=== PATIENT | female | born 1980 | race Hispanic/Latino ===

== ENCOUNTER 2017-04-22 22:39 | Emergency (ER) | payer MEDICAID | END 2017-04-23 02:19 | disposition home or self-care (01) | LOC: EDH 22:39 | DX: S80.02XA Contusion of left knee, initial encounter (principal); W18.30XA Fall on same level, unspecified, initial encounter; Y93.89 Activity, other specified; Y92.488 Other paved roadways as the place of occurrence of the external cause; Y99.8 Other external cause status | CPT/HCPCS: 73562 ==

== ENCOUNTER 2017-05-12 20:06 | Emergency (ER) | payer MEDICAID | END 2017-05-12 22:28 | disposition home or self-care (01) | LOC: EDH 20:06 | DX: S50.12XA Contusion of left forearm, initial encounter (principal); Z79.899 Other long term (current) drug therapy; X58.XXXA Exposure to other specified factors, initial encounter; Y93.89 Activity, other specified; Y92.89 Other specified places as the place of occurrence of the external cause; Y99.8 Other external cause status | CPT/HCPCS: 99281 ==

== ENCOUNTER 2017-05-20 10:32 | Emergency (ER) | payer BC, MEDICAID ==
[2017-05-20] MEDS ORDERED: IPRATROPIUM/ALBUTEROL SULFATE 3 ML SOLUTION IH ONE (10:53)
[2017-05-20] MEDS ORDERED: LIDOCAINE HCL-MPF 1% 2ML VIAL ONE (11:28)
[2017-05-20] MEDS ORDERED: CEFTRIAXONE SODIUM 1 GM ONE (11:28)
== END 2017-05-20 12:02 | disposition home or self-care (01) ==
LOC: EDH 10:32
DX: J20.9 Acute bronchitis, unspecified (principal); J30.9 Allergic rhinitis, unspecified; Z98.890 Other specified postprocedural states; Z79.899 Other long term (current) drug therapy
CPT/HCPCS: 71046; 94640; 96372; 99284; J0696; J3490

== ENCOUNTER 2018-01-12 06:57 | Emergency (ER) | payer BC, MEDICAID ==
[2018-01-12 07:31] LABS: BASOPHILS % (AUTO) 0.6 % (0.0-5.0); EOSINOPHILS % (AUTO) 1.4 % (0.0-8.0); HEMATOCRIT 38.7 % (36-48); LYMPHOCYTES % (AUTO) 23.3 % (21.0-51.0); MEAN CORPUSCULAR HEMOGLOBIN 28.1 pg (27.0-33.0); MEAN CORPUSCULAR HGB CONC 32.5 g/dL (32.0-36.0); MEAN CORPUSCULAR VOLUME 86.4 fL (79-99); MONOCYTES % (AUTO) 6.4 % (3.0-13.0); NEUTROPHILS % (AUTO) 68.3 % (40.0-77.0); PLATELET COUNT (AUTO) 212 K/uL (130-400); RED BLOOD CELL COUNT(AUTO) 4.48 MIL/uL (4.00-5.50); RED CELL DISTRIBUTION WIDTH 17.9 % (11.0-15.5); WHITE BLOOD COUNT (AUTO) 8.9 K/uL (4.8-10.8)
[2018-01-12 07:40] LABS: CREATININE 0.6 mg/dL (0.5-1.5); POTASSIUM 3.7 mmol/L (3.5-5.1)
[2018-01-12 07:46] LABS: ALBUMIN 3.3 g/dL (3.5-5.0); BILIRUBIN,DIRECT 0.1 mg/dL (0.0-0.3); BILIRUBIN,TOTAL 0.5 mg/dL (0.2-1.0); TOTAL PROTEIN, SERUM 7.8 g/dL (6.0-8.3)
[2018-01-12 09:39] LABS: APPEARANCE,URINE CLEAR (CLEAR); BILIRUBIN,URINE NEGATIVE (NEGATIVE); COLOR,URINE YELLOW (YELLOW); GLUCOSE, URINE (UA) NEGATIVE (NEGATIVE); KETONES,URINE 15 mg/dL (NEGATIVE); LEUKOCYTE ESTERASE ,URINE NEGATIVE (NEGATIVE); NITRATE,URINE NEGATIVE (NEGATIVE); OCCULT BLOOD,URINE LARGE (NEGATIVE); PROTEIN,URINE NEGATIVE (NEGATIVE); UROBILINOGEN,URINE 0.2 mg/dL (0.2-1.0)
[2018-01-12 09:47] LABS: AMPHET/METH SCREEN,URINE NEGATIVE (NEGATIVE); BARBITURATE SCREEN, URINE NEGATIVE (NEGATIVE); BENZODIAZEPINES SCREEN,URINE NEGATIVE (NEGATIVE); CANNABINOID SCREEN,URINE NEGATIVE (NEGATIVE); COCAINE SCREEN,URINE NEGATIVE (NEGATIVE); OPIATE SCREEN,URINE NEGATIVE (NEGATIVE); PHENCYCLIDINE SCREEN,URINE NEGATIVE (NEGATIVE)
[2018-01-12 10:12] LABS: BACTERIA,URINE Rare /HPF (None Seen); RBC,URINE 0-1 /HPF (0-1); SQUAMOUS EPITHELIAL CELL,UR Rare /HPF (0-2); WBC,URINE 0-1 /HPF (0-1)
== END 2018-01-12 11:03 | disposition home or self-care (01) ==
LOC: EDH 06:57
DX: O20.0 Threatened abortion (principal); Z3A.12 12 weeks gestation of pregnancy
CPT/HCPCS: 36415; 76801; 80048; 80076; 80305; 81001; 84702; 85025; 86850; 86900; 86901

== ENCOUNTER 2018-07-01 11:58 | Emergency (ER) | payer BC, MEDICAID ==
[2018-07-01] MEDS ORDERED: ACETAMINOPHEN 325 MG TAB ONE (12:37)
[2018-07-01 13:02] LABS: RAPID GROUP A STREP NEGATIVE (NEGATIVE)
== END 2018-07-01 13:58 | disposition home or self-care (01) ==
LOC: EDH 11:58
DX: O99.513 Diseases of the respiratory system complicating pregnancy, third trimester (principal); J06.9 Acute upper respiratory infection, unspecified; Z90.49 Acquired absence of other specified parts of digestive tract; Z98.890 Other specified postprocedural states; Z3A.36 36 weeks gestation of pregnancy
CPT/HCPCS: 87804; 87880

== ENCOUNTER 2019-01-13 20:19 | Emergency (ER) | payer MEDICAID ==
[2019-01-13 21:08] LABS: RAPID GROUP A STREP NEGATIVE (NEGATIVE)
== END 2019-01-13 21:36 | disposition home or self-care (01) ==
LOC: EDH 20:19
DX: J06.9 Acute upper respiratory infection, unspecified (principal); Z98.890 Other specified postprocedural states
CPT/HCPCS: 87804; 87880

== ENCOUNTER 2019-02-22 20:29 | Emergency (ER) | payer MEDICAID ==
[2019-02-22] MEDS ORDERED: DiphenhydrAMINE HCL 50 MG/ML VIAL ONE (21:15)
[2019-02-22] MEDS ORDERED: METHYLPREDNISOLONE SOD SUCC 125MG/2ML VIAL ONE (21:15)
== END 2019-02-22 21:57 | disposition home or self-care (01) ==
LOC: EDH 20:29
DX: K13.0 Diseases of lips (principal); Z88.8 Allergy status to other drugs, medicaments and biological substances; Z98.890 Other specified postprocedural states
CPT/HCPCS: 96372 ×2; 99284; J1200; J2930

== ENCOUNTER 2019-02-24 17:10 | Emergency (ER) | payer MEDICAID ==
[2019-02-24] MEDS ORDERED: ACETAMINOPHEN EXTRA STRENGTH 500 MG TABLET ONE (17:29)
[2019-02-24 18:42] LABS: RAPID GROUP A STREP NEGATIVE (NEGATIVE)
== END 2019-02-24 18:35 | disposition home or self-care (01) ==
LOC: EDH 17:10
DX: J09.X2 Influenza due to identified novel influenza A virus with other respiratory manifestations (principal); Z88.0 Allergy status to penicillin
CPT/HCPCS: 81025; 87804; 87880

== ENCOUNTER 2019-04-22 21:13 | Emergency (ER) | payer MEDICAID ==
[2019-04-22] MEDS ORDERED: DIPHENHYDRAMINE HCL 25 MG CAPSULE ONE (22:06)
[2019-04-22] MEDS ORDERED: PREDNISONE 20 MG TABLET ONE (22:06)
== END 2019-04-22 23:38 | disposition home or self-care (01) ==
LOC: EDH 21:13
DX: T78.49XA Other allergy, initial encounter (principal); Z88.0 Allergy status to penicillin; Z98.890 Other specified postprocedural states; X58.XXXA Exposure to other specified factors, initial encounter
CPT/HCPCS: 82948; 99283; Q0163

== ENCOUNTER 2019-07-12 13:26 | Emergency (ER) | payer MEDICAID ==
[2019-07-12] MEDS ORDERED: ACETAMINOPHEN 325 MG TAB ONE (14:02)
[2019-07-12] MEDS ORDERED: TETANUS/DIPHTHERIA TOXOID [ADULT] 0.5 ML VIAL IM ONE (14:03)
== END 2019-07-12 15:14 | disposition home or self-care (01) ==
LOC: EDH 13:26
DX: S91.331A Puncture wound without foreign body, right foot, initial encounter (principal); Z88.0 Allergy status to penicillin; Z98.890 Other specified postprocedural states; W45.0XXA Nail entering through skin, initial encounter; Y93.89 Activity, other specified; Y92.098 Other place in other non-institutional residence as the place of occurrence of the external cause; Y99.8 Other external cause status
CPT/HCPCS: 73630; 90471; 90714

== ENCOUNTER 2019-08-05 21:51 | Emergency (ER) | payer MEDICAID ==
[2019-08-05] MEDS ORDERED: ACETAMINOPHEN EXTRA STRENGTH 500 MG TABLET ONE (22:24)
[2019-08-05] MEDS ORDERED: POTASSIUM BICARB/CIT AC 25 MEQ TABLET.EFF ONE (23:32)
[2019-08-06] MEDS ORDERED: AZITHROMYCIN 250 MG TABLET PO ONE (01:22)
== END 2019-08-06 01:49 | disposition home or self-care (01) ==
LOC: EDH 21:51
DX: U07.1 COVID-19 (principal); J12.89 Other viral pneumonia; E87.6 Hypokalemia; Z88.0 Allergy status to penicillin; Z98.890 Other specified postprocedural states
CPT/HCPCS: 36415 ×2; 71045; 80053; 81001; 81025; 82550; 83605; 83874; 84145; 84484; 85025; 85610; 85730; 87040 ×2; 87088; 87804 ×2; 87880; 93005; 99285; U0003

== ENCOUNTER 2020-08-14 16:42 | Emergency (ER) | payer MEDICAID ==
[~2020-08-14] VITALS: Ht 175.3 cm; Wt 119.7 kg
[2020-08-14] MEDS ORDERED: KETOROLAC 30MG VIAL (30MG/ML) IM ONE (17:30)
[2020-08-14] MEDS ORDERED: MUPI22O TP (17:52)
== END 2020-08-14 18:23 | disposition home or self-care (01) ==
LOC: EDH 16:42
DX: S80.862A Insect bite (nonvenomous), left lower leg, initial encounter (principal); L29.9 Pruritus, unspecified; W57.XXXA Bitten or stung by nonvenomous insect and other nonvenomous arthropods, initial encounter; Y93.89 Activity, other specified; Y92.89 Other specified places as the place of occurrence of the external cause; Y99.8 Other external cause status
CPT/HCPCS: 96372; 99283; J1885

== ENCOUNTER 2020-10-22 18:47 | Emergency (ER) | payer MEDICAID ==
[~2020-10-22] VITALS: Ht 175.3 cm; Wt 127.0 kg
[~2020-10-22 18:47] MED LIST: MUPI22O TP
[2020-10-22 18:59] VITALS: BP 129/76
[2020-10-22] MEDS ORDERED: TETANUS/DIPHTHERIA TOXOID [ADULT] 0.5 ML VIAL IM ONE (19:00)
[2020-10-22] MEDS ORDERED: CEPHALEXIN 500 MG CAPSULE PO ONE (19:00)
[2020-10-22] MEDS ORDERED: HYDROCODONE/ACETAMINOPHEN 10/325 MG TAB PO ONE (19:00)
[2020-10-22] MEDS ORDERED: CEPH500B PO (19:43)
[2020-10-22] MEDS ORDERED: IBUP-1552 PO (19:43)
== END 2020-10-22 20:27 | disposition home or self-care (01) ==
LOC: EDH 18:47
DX: S90.122A Contusion of left lesser toe(s) without damage to nail, initial encounter (principal); S90.415A Abrasion, left lesser toe(s), initial encounter; Z68.41 Body mass index [BMI] 40.0-44.9, adult; E66.9 Obesity, unspecified; X58.XXXA Exposure to other specified factors, initial encounter; Y93.89 Activity, other specified; Y92.000 Kitchen of unspecified non-institutional (private) residence as the place of occurrence of the external cause; Y99.8 Other external cause status
CPT/HCPCS: 73660; 90471; 90714

== ENCOUNTER 2021-07-31 20:09 | Emergency (ER) | payer MEDICAID ==
[~2021-07-31] VITALS: Ht 175.3 cm; Wt 117.9 kg
[~2021-07-31 20:09] MED LIST changes: +CEPH500B PO; +IBUP-1552 PO
[2021-07-31] MEDS ORDERED: ACETAMINOPHEN 500 MG TABLET PO ONE (21:00)
[2021-07-31] MEDS ORDERED: AZEL23SP2 NS (21:13)
[2021-07-31 21:29] VITALS: BP 121/71
== END 2021-07-31 21:36 | disposition home or self-care (01) ==
LOC: EDH 20:09
DX: J06.9 Acute upper respiratory infection, unspecified (principal); Z20.822 Contact with and (suspected) exposure to COVID-19; E66.9 Obesity, unspecified; Z68.38 Body mass index [BMI] 38.0-38.9, adult; Z79.1 Long term (current) use of non-steroidal anti-inflammatories (NSAID)
CPT/HCPCS: 87635; 87804 ×2; 99283; C9803

== ENCOUNTER 2022-01-26 08:00 | Emergency (ER) | payer MEDICAID ==
[~2022-01-26] VITALS: Ht 175.3 cm; Wt 119.7 kg
[~2022-01-26 08:00] MED LIST changes: +AZEL23SP2 NS
[2022-01-26] MEDS ORDERED: NAPROXEN 500 MG TABLET PO STA (08:03)
[2022-01-26] MEDS ORDERED: NAPROXEN 250 MG TAB ONE (08:20)
[2022-01-26 08:47] VITALS: BP 124/59
[2022-01-26] MEDS ORDERED: NAPR-1192 PO (09:06)
== END 2022-01-26 09:31 | disposition home or self-care (01) ==
LOC: EDH 08:00
DX: S86.911A Strain of unspecified muscle(s) and tendon(s) at lower leg level, right leg, initial encounter (principal); E11.9 Type 2 diabetes mellitus without complications; E66.9 Obesity, unspecified; Z79.899 Other long term (current) drug therapy; Z68.39 Body mass index [BMI] 39.0-39.9, adult; Z98.890 Other specified postprocedural states; W01.0XXA Fall on same level from slipping, tripping and stumbling without subsequent striking against object, initial encounter; Y93.01 Activity, walking, marching and hiking; Y92.89 Other specified places as the place of occurrence of the external cause; Y99.8 Other external cause status
CPT/HCPCS: 29505; 73562

== ENCOUNTER 2022-02-25 23:04 | Emergency (ER) | payer MEDICAID ==
[~2022-02-25] VITALS: Ht 175.3 cm; Wt 113.9 kg
[~2022-02-25 23:04] MED LIST changes: +NAPR-1192 PO
[2022-02-25 23:07] VITALS: BP 148/93
[2022-02-26 00:54] LABS: BASOPHILS % (AUTO) 0.3 % (0.0-5.0); EOSINOPHILS % (AUTO) 0.6 % (0.0-8.0); LYMPHOCYTES % (AUTO) 20.9 % (21.0-51.0); MEAN CORPUSCULAR HEMOGLOBIN 28.7 pg (27.0-33.0); MEAN CORPUSCULAR HGB CONC 33.3 g/dL (32.0-36.0); MEAN CORPUSCULAR VOLUME 86.4 fL (79-99); MONOCYTES % (AUTO) 5.1 % (3.0-13.0); NEUTROPHILS % (AUTO) 72.7 % (40.0-77.0); PLATELET COUNT (AUTO) 225 K/uL (130-400); RED BLOOD CELL COUNT(AUTO) 4.63 MIL/uL (4.00-5.50); RED CELL DISTRIBUTION WIDTH 12.9 % (11.0-15.5); WHITE BLOOD COUNT (AUTO) 12.1 K/uL (4.8-10.8)
[2022-02-26 01:07] LABS: ALBUMIN 3.6 g/dL (3.5-5.0); CREATININE 0.7 mg/dL (0.5-1.5); TOTAL PROTEIN, SERUM 7.7 g/dL (6.0-8.3)
[2022-02-26] MEDS ORDERED: IBUPROFEN 600 MG TABLET PO ONE (02:00)
[2022-02-26] MEDS ORDERED: POTASSIUM BICARB/CIT AC 25 MEQ TABLET.EFF PO ONE (02:00)
[2022-02-26] MEDS ORDERED: TRAZODONE HCL 50 MG TAB PO SCH (02:00)
[2022-02-26] MEDS ORDERED: FLUT16H NS (03:22)
[2022-02-26] MEDS ORDERED: IBUP-2070 PO (03:22)
[2022-02-26] MEDS ORDERED: CETI10TA57 PO (03:22)
== END 2022-02-26 03:32 | disposition home or self-care (01) ==
LOC: EDH 23:04
DX: G47.00 Insomnia, unspecified (principal); F43.20 Adjustment disorder, unspecified; J32.3 Chronic sphenoidal sinusitis; E11.9 Type 2 diabetes mellitus without complications; E66.9 Obesity, unspecified; Z79.899 Other long term (current) drug therapy
CPT/HCPCS: 36415; 70450; 80053; 84703; 85025

== ENCOUNTER 2022-07-14 03:20 | Emergency (ER) | payer MEDICAID ==
[~2022-07-14] VITALS: Ht 175.3 cm; Wt 125.2 kg
[~2022-07-14 03:20] MED LIST changes: +CETI10TA57 PO; +FLUT16H NS; +IBUP-2070 PO
[2022-07-14 04:07] VITALS: BP 146/89
[2022-07-14] MEDS ORDERED: KETOROLAC 60 MG VIAL (30MG/ML) IM ONE (04:30)
== END 2022-07-14 04:43 | disposition home or self-care (01) ==
LOC: EDH 03:20
DX: J02.8 Acute pharyngitis due to other specified organisms (principal); E11.9 Type 2 diabetes mellitus without complications; E66.9 Obesity, unspecified; Z68.41 Body mass index [BMI] 40.0-44.9, adult; Z20.822 Contact with and (suspected) exposure to COVID-19
CPT/HCPCS: 99283; 87635; 87880; 87804 ×2; 96372; C9803; J1885

== ENCOUNTER 2022-09-17 22:49 | Emergency (ER) | payer MEDICAID ==
[~2022-09-17] VITALS: Ht 175.3 cm; Wt 121.1 kg
[2022-09-18 01:03] VITALS: BP 137/86; PULSE 75; RESP 17; O2SAT 98
[2022-09-18] MEDS ORDERED: CEFTRIAXONE 2GM VIAL ONE (02:02)
[2022-09-18] MEDS ORDERED: KETOROLAC 30MG VIAL (30MG/ML) ONE (02:02)
[2022-09-18] MEDS ORDERED: CEPH500B PO (02:28)
[2022-09-18] MEDS ORDERED: CEFTRIAXONE 2GM VIAL IVPB ONE (02:30)
[2022-09-18] MEDS ORDERED: KETOROLAC 30MG VIAL (30MG/ML) IVP ONE (02:30)
== END 2022-09-18 02:56 | disposition home or self-care (01) ==
LOC: EDH 22:49
DX: K05.10 Chronic gingivitis, plaque induced (principal); K02.9 Dental caries, unspecified; E11.9 Type 2 diabetes mellitus without complications; Z79.899 Other long term (current) drug therapy; Z98.890 Other specified postprocedural states
CPT/HCPCS: 99284; 96365; 96375; J0696; J1885

== ENCOUNTER 2023-01-31 12:19 | Emergency (ER) | payer MEDICAID ==
[~2023-01-31] VITALS: Ht 175.3 cm; Wt 113.4 kg
[2023-01-31] MEDS ORDERED: DEXAMETHASONE SOD PHOSPHATE 4 MG/ML 1ML VIAL IM ONE (13:00)
[2023-01-31 13:34] LABS: COVID19 (SARS ANTIGEN RAPID) PRESUMPTIVE NEGATIVE (NEGATIVE); INFLUENZA TYPE A Negative For Type A (NEGATIVE); INFLUENZA TYPE B Negative For Type B (NEGATIVE)
[2023-01-31] MEDS ORDERED: LORA-868 PO (14:21)
[2023-01-31 14:28] VITALS: BP 136/69; PULSE 78; RESP 18; O2SAT 98
== END 2023-01-31 14:34 | disposition home or self-care (01) ==
LOC: EDH 12:19
DX: J06.9 Acute upper respiratory infection, unspecified (principal); E11.9 Type 2 diabetes mellitus without complications; Z20.822 Contact with and (suspected) exposure to COVID-19
CPT/HCPCS: 99283; 87426; 87804 ×2; 96372; J1100

== ENCOUNTER 2023-03-21 16:40 | Emergency (ER) | payer MEDICAID ==
[~2023-03-21] VITALS: Ht 175.3 cm; Wt 122.5 kg
[~2023-03-21 16:40] MED LIST changes: +LORA-868 PO
[2023-03-21 17:48] VITALS: BP 130/75; PULSE 67; RESP 16
[2023-03-21] MEDS ORDERED: AMOX1TAB16 PO (18:32)
[2023-03-21] MEDS ORDERED: BENZ-39 PO (18:32)
== END 2023-03-21 22:29 | disposition left against medical advice (07) ==
LOC: EDH 16:40
DX: J03.90 Acute tonsillitis, unspecified (principal); J06.9 Acute upper respiratory infection, unspecified; R05.9 Cough, unspecified; E11.9 Type 2 diabetes mellitus without complications

== ENCOUNTER 2023-11-11 23:01 | Emergency (ER) | payer MEDICAID ==
[~2023-11-11] VITALS: Ht 175.3 cm; Wt 108.9 kg
[~2023-11-11 23:01] MED LIST changes: +AMOX1TAB16 PO; +BENZ-39 PO
[2023-11-11 23:51] LABS: BASOPHILS # (AUTO) 0.05 K/uL (0.00-0.20); BASOPHILS % (AUTO) 0.4 % (0.0-5.0); EOSINOPHILS # (AUTO) 0.12 K/uL (0.00-0.70); HEMATOCRIT 39.1 % (36-48); IMMATURE GRANULOCYTE ABSOLUTE 0.07 K/uL (0-1); LYMPHOCYTES # (AUTO) 3.3 K/uL (1.0-4.8); LYMPHOCYTES % (AUTO) 28.3 % (21.0-51.0); MEAN CORPUSCULAR HEMOGLOBIN 29.5 pg (27.0-33.0); MEAN CORPUSCULAR HGB CONC 32.7 g/dL (32.0-36.0); MEAN CORPUSCULAR VOLUME 90.1 fL (79-99); MONOCYTES # (AUTO) 0.8 K/uL (0.1-1.0); MONOCYTES % (AUTO) 6.7 % (3.0-13.0); NEUTROPHILS # (AUTO) 7.3 K/uL (1.8-7.7); PLATELET COUNT (AUTO) 221 K/uL (130-400); RED BLOOD CELL COUNT(AUTO) 4.34 MIL/uL (4.00-5.50); RED CELL DISTRIBUTION WIDTH 13.1 % (11.0-15.5); WHITE BLOOD COUNT (AUTO) 11.6 K/uL (4.8-10.8)
[2023-11-12] LABS: SARS-CoV-2, RNA, NAAT NEGATIVE SARS CoV-2 (NEGATIVE)
[2023-11-12 00:03] LABS: INFLUENZA TYPE A Negative For Type A (NEGATIVE); INFLUENZA TYPE B Negative For Type B (NEGATIVE)
[2023-11-12 00:04] LABS: CREATININE 0.8 mg/dL (0.5-1.0); POTASSIUM 3.6 mmol/L (3.5-5.1)
[2023-11-12 00:12] LABS: ALBUMIN 3.4 g/dL (3.5-5.0); BILIRUBIN,TOTAL 0.5 mg/dL (0.2-1.0); TOTAL PROTEIN, SERUM 7.7 g/dL (6.0-8.3)
[2023-11-12] MEDS ORDERED: ONDA-243 PO (00:26)
[2023-11-12 00:52] VITALS: BP 132/72; PULSE 66; RESP 20; TEMP 98.6; O2SAT 100
[2023-11-12] MEDS: LACTATED RINGERS 1000ML 1,000 ML IV ONE (00:52)
[2023-11-12 01:01] LABS: APPEARANCE,URINE CLOUDY (CLEAR); BILIRUBIN,URINE NEGATIVE (NEGATIVE); COLOR,URINE LIGHT-YELLOW (YELLOW); GLUCOSE, URINE (UA) >=1000 mg/dL (NEGATIVE); KETONES,URINE 5 mg/dL (NEGATIVE); LEUKOCYTE ESTERASE ,URINE NEGATIVE Leu/uL (NEGATIVE); NITRATE,URINE NEGATIVE (NEGATIVE); OCCULT BLOOD,URINE NEGATIVE (NEGATIVE); PH,URINE 5.5 (5.0-8.0); PROTEIN,URINE 10 mg/dL (NEGATIVE); UROBILINOGEN,URINE 0.2 mg/dL (0.2-1.0)
[2023-11-12 01:02] LABS: ADD UA MICROSCOPIC YES
[2023-11-12 01:03] LABS: BACTERIA,URINE RARE /HPF (None Seen); MUCUS,URINE RARE LPF (None Seen); RBC,URINE 0-1 /HPF (0-1); SQUAMOUS EPITHELIAL CELL,UR MANY /HPF (0-2)
== END 2023-11-12 01:04 | disposition home or self-care (01) ==
LOC: EDH 23:01
DX: A08.4 Viral intestinal infection, unspecified (principal); E11.9 Type 2 diabetes mellitus without complications; E66.9 Obesity, unspecified; Z20.822 Contact with and (suspected) exposure to COVID-19
CPT/HCPCS: 36415; 80053; 81001; 82550; 85025; 87635; 87804

== ENCOUNTER 2023-12-11 19:33 | Emergency (ER) | payer MEDICAID ==
[~2023-12-11] VITALS: Ht 175.3 cm; Wt 117.9 kg
[~2023-12-11 19:33] MED LIST changes: +ONDA-243 PO
--- NOTE | 2023-12-11 19:35 | NUR ---
COVID, FLU AND STREP SWABS COLLECTED AND SENT FOR ANY FUTURE ORDERS
--- NOTE | 2023-12-11 19:50 | ERN ---
ED Note History of Present Illness Stated Complaint: COUGH, SORE THROAT Chief Complaint: Cough Time Seen by MD: 19:36 Dictation: PATIENT IS A 43-YEAR-OLD FEMALE HERE WITH COMPLAINTS OF A SORE THROAT WITH PAINFUL SWALLOWING OFF AND ON FOR TWO WEEKS. SHE DENIES ANY VOICE CHANGES, HAS HAD LOW-GRADE FEVER. SHE HAS ALSO HAD A COUGH THAT HAS BEEN NONPRODUCTIVE BUT PERSISTENT. SHE STATES SHE HAS BEEN TO HER DOCTOR TWICE WHO GAVE HER AZITHROMYCIN THE 1ST TIME, AND THEN THE 2ND TIME SOME UNKNOWN ANTIBIOTIC. SHE DENIES NAUSEA VOMITING DIARRHEA NO LOSS OF TASTE OR SMELL AT THIS TIME. SHE ALSO STATES SHE HAS A NEBULIZER HOME HOWEVER RAN OUT OF MEDICATIONS. Allergies: Coded Allergies: No Known Allergies (Unverified Allergy, Unknown, 07/01/18) No Known Drug Allergies (Unverified Allergy, Unknown, 02/22/19) Home Meds Active Scripts Ondansetron (Ondansetron Odt) 4 Mg Tab.rapdis, 4 MG PO BID for 3 Days, #6 TAB Prov:CLAUDETTE PEREZ MD 11/12/23 Benzonatate (Tessalon Perles) 100 Mg Cap, 100 MG PO TID for cough, #30 CAP 0 Refills Prov:JERRI ARGUELLES NP 03/21/23 Amoxicillin/Potassium Clav (Amox Tr-K Clv 875-125 mg Tab) 875 Mg-125 Mg Tablet, 1 EACH PO BID for 10 Days, #20 TAB 0 Refills Prov:JERRI ARGUELLES NP 03/21/23 Loratadine/Pseudoephedrine (Claritin-D 24 Hour Tablet) 10 Mg-240 Mg Tab.er.24h, 1 EACH PO DAILY, #10 TAB Prov:JERRI ARGUELLES NP 01/31/23 Cephalexin Monohydrate (Keflex) 500 Mg Cap, 500 MG PO QID for 7 Days, #28 CAP Prov:ROGE MICHEL Sr., MD 09/18/22 Ibuprofen (Ibuprofen) 600 Mg Tablet, 600 MG PO Q6H PRN for PAIN, #30 TAB 0 Refills Prov:ANALISA LANTIGUA MD 02/26/22 Fluticasone Propionate (Fluticasone Propionate) 16 Gm [place].susp, 16 GM NS BID for 15 Days, #1 INHALER 0 Refills Prov:ANALISA LANTIGUA MD 1/20/23 Cetirizine HCl (Cetirizine HCl) 10 Mg Tablet, 10 MG PO DAILY, #30 TAB 0 Refills Prov:ANALISA LANTIGUA MD 02/26/22 Naproxen (Naproxen) 375 Mg Tablet, 375 MG PO BID for 10 Days, #20 TAB Prov:CLAUDETTE PEREZ MD 01/26/22 Azelastine/Fluticasone (Azelastin-Flutic 137-50Mcg Spr) 23 Gm [place].pump, 2 SPRAY NS BID for 7 Days, #1 INHALER 0 Refills Prov:ANALISA LANTIGUA MD 07/31/21 Cephalexin Monohydrate (Keflex) 500 Mg Cap, 500 MG PO TID, #21 CAP Prov:BECKY SHEN 10/22/20 Ibuprofen (Ibu) 400 Mg Tablet, 800 MG PO TIDAC, #60 TAB Prov:BECKY SHEN 10/22/20 Mupirocin (Bactroban 2% Oint) 1 Appl/Gm Oint, 1 APPL TP TID for insect bite for 5 Days, #15 APPL Prov:BUNNY JACKSON NP 08/14/20 Past Medical History Past Medical History: Diabetes-Type II Additional Past Medical Hx: Obese Surgical History: PSYCH History: no pertinent psych hx Social History: Lives with family History: Not Applicable RN Note Reviewed/Agreed w/PFSH: Yes Review of System Dictation CONSTITUTIONAL: NEGATIVE EXCEPT FOR HPI HEAD/FACE: NEGATIVE EXCEPT FOR HPI EENT: NEGATIVE EXCEPT FOR HPI SORE THROAT WITH PAINFUL SWALLOWING RESPIRATORY: NEGATIVE EXCEPT FOR HPI PERSISTENT COUGH, DRY GASTROINTESTINAL/ABDOMINAL: NEGATIVE EXCEPT FOR HPI GENITOURINARY: NEGATIVE EXCEPT FOR HPI MUSCULOSKELETAL: NEGATIVE EXCEPT FOR HPI INTEGUMENTARY: NEGATIVE EXCEPT FOR HPI NEUROLOGICAL/PSYCH: NEGATIVE EXCEPT FOR HPI HEMATOLOGIC/LYMPHATIC: NEGATIVE EXCEPT FOR HPI ALL SYSTEMS NEGATIVE, EXCEPT NOTED ABOVE. 13 POINT REVIEW OF SYSTEMS ASSESSED AND ALL NEGATIVE EXCEPT FOR ABOVE. Initial Vital Sign VS Vital Signs Date Time Temp Pulse Resp B/P (MAP) Pulse Ox O2 Delivery O2 Flow Rate FiO2 12/11/23 19:34 98.1 68 18 150/72 98 Room Air 12/11/23 20:21 0 21 Physical Exam Dictation VITAL SIGNS REVIEWED GENERAL APPEARANCE: ALERT, ORIENTED X 3, MILD ACUTE DISTRESS, WELL DEVELOPED, NOURISHED. HEAD AND FACE: NON-TRAUMATIC. EYES: PERRL, PINK CONJUNCTIVAS, EYELID NO TRAUMA, ANTERIOR CHAMBER WITH ARCUS SENILIS. EARS: PINNAS INTACT AND NO SIGNS OF TRAUMA OR ERYTHEMA EAR CANALS CLEAR AND NO DISCHARGE TM NO ERYTHEMA NOSE: NO DISCHARGE, NO BLEEDING. OROPHARYNX: MOUTH NORMAL, TONGUE PINK, PHARYNX CLEAR,NO ERYTHEMA, TONSILS RIGHT TONSIL 2/4 WITH EXUDATE, NO ABSCESSES NOTED, MUCOUS MEMBRANE MOIST UVULA MIDLINE, VOICE IS CLEAR POSITIVE SOME TONSILLAR LYMPHADENOPATHY. NECK: SUPPLE, NON-TENDER, NO THYROMEGALY, NO MASSES, NO JVD, NO BRUITS BREAST:DEFERRED CHEST:NO TENDERNESS, NO CREPITUS, NO PARADOXICAL MOVEMENT, NO RETRACTIONS LUNGS:CLEAR, WELL-VENTILATED, SYMMETRIC, NO RALES, NO WHEEZING, NO RHONCHI, NO STRIDOR, GOOD BREATH SOUNDS BILATERALLY PERSISTENT DRY COUGH NOTED HEART: REGULAR RATE, REGULAR RHYTHM, NO MURMUR, NO GALLOPS VASCULAR: NO PERIPHERAL EDEMA, ABDOMEN: SOFT, POSITIVE BOWEL SOUNDS, NONDISTENDED, NO GUARDING, NONTENDER, NO REBOUND, NO MASSES NO HEPATOMEGALY, NO SPLENOMEGALY, NO VALERO'S SIGN, NO HERNIAS. RECTAL: DEFERRED GENITAL: DEFERRED NEUROLOGICAL: NORMAL SPEECH, MOTOR FUNCTION INTACT, SENSORY FUNCTION INTACT MUSCULOSKELETAL: NECK NONTENDER, FULL RANGE OF MOTION, BACK NONTENDER, FULL RANGE OF MOTION, EXTREMITIES: NONTENDER, FULL RANGE OF MOTION SKIN: COLOR PINK, DRY, NO TURGOR, NO RASH, NO LACERATIONS, NO ABRASIONS, NO CONTUSIONS. LYMPHATIC: DEFERRED Results (Laboratory/Radiology) Laboratory/Radiology Laboratory Tests Test 12/11/23 19:36 Influenza Type A Antigen Negative For Type A Influenza Type B Antigen Negative For Type B SARS-CoV-2 Antigen (Rapid) PRESUMPTIVE NEGATIVE Group A Streptococcus Rapid negative (NEGATIVE) 2119, MILDLY INCREASED BRONCHIAL MARKINGS ON CHEST X-RAY. NO INFILTRATE Labs Reviewed?: Yes ED Course ED Course Orders Procedure Category Date Status Time Amox/Clav 875/125mg PHA 12/11/23 Complete Tab (Augmentin 875-1 20:00 Dexamethasone 4mg/Ml PHA 12/11/23 Complete 1ml Vial (Dexametha 20:00 Acetaminophen 500mg PHA 12/11/23 Complete Tab (Tylenol 500mg T 20:00 Covid19 (Sars Antigen LAB 12/11/23 Complete Rapid) 19:45 Budesonide 0.5 Mg/2 PHA 12/11/23 Complete Ml Inh (Pulmicort 0. 19:50 Chest 1vw RAD 12/11/23 Taken 20:03 Influenza Type A & B, LAB 12/11/23 Complete Rapid 19:45 Rapid (Group A Strep) LAB 12/11/23 Complete 19:45 Current Medications Medications (Trade) Dose Ordered Sig/Sasha Route PRN Reason Start Time Stop Time Status Last Admin Dose Admin Acetaminophen (TYLenol 500MG TAB) 1,000 mg ONCE ONCE PO 12/11/23 20:00 12/11/23 20:01 DC 12/11/23 20:14 Amoxicillin/ Clavulanate Potassium (Augmentin 875-125 Tablet) 1 each ONCE ONCE PO 12/11/23 20:00 12/11/23 20:01 DC 12/11/23 20:13 Budesonide (Pulmicort 0.5 Mg/2ml) 1 mg ONCE STAT IH 12/11/23 19:50 12/11/23 19:52 DC 12/11/23 20:04 Dexamethasone Sodium Phosphate (dexaMETHasone 4MG/ML 1ML VIAL) 8 mg ONCE ONCE IM 12/11/23 20:00 12/11/23 20:01 DC 12/11/23 20:14 Vital Signs Date Time Temp Pulse Resp B/P (MAP) Pulse Ox O2 Delivery O2 Flow Rate FiO2 12/11/23 20:21 98.1 68 18 150/72 98 Room Air* 0 21 12/11/23 20:06 65 20 12/11/23 19:34 98.1 68 18 150/72 98 Room Air 2122, SATURATION 98- 99%.. COUGH IS REDUCED AFTER TREATMENT. PATIENT WILL BE DISCHARGED HOME WITH TESSALON/BUDESONIDE AND ALBUTEROL. ALSO [id number] B.I.D. FOR 10 DAYS. Medical Decision Making MDM MEDICAL DISCHARGE MAKING BASED ON SWABS FOR FLU COVID, CHEST X-RAY. CHEST X-RAY NEGATIVE FOR INFILTRATES COVID-19 AND FLU NEGATIVE PATIENT WILL BE GIVEN BUDESONIDE TWICE A DAY FOR SEVEN DAYS TESSALON PERLES T.I.D. FOR SEVEN DAYS AUGMENTIN 875 B.I.D. FOR 10 DAYS ALBUTEROL REFILL DX & DISP Disposition: Discharge Departure Impression: Primary Impression: Exudative tonsillitis Additional Impression: Viral URI with cough Condition: Stable Scripts Benzonatate (Tessalon Perles) 100 Mg Cap 100 MG PO TID for cough, #30 CAP 0 Refills Prov: JERRI ARGUELLES NP 12/11/23 Albuterol Sulfate (Albuterol Sulfate) 2.5 Mg/0.5 Ml Vial.neb 2.5 MG IH Q6H for wheezing/sob, #20 INH 0 Refills Prov: JERRI ARGUELLES NP 12/11/23 Budesonide (Budesonide) 0.5 Mg/2 Ml Ampul.neb 0.5 MG IH BID for 7 Days, #14 UNIT Prov: JERRI ARGUELLES NP 12/11/23 Amoxicillin/Potassium Clav (Amox Tr-K Clv 875-125 mg Tab) 875 Mg-125 Mg Tablet 1 EACH PO BID for 10 Days, #20 TAB 0 Refills Prov: JERRI ARGUELLES NP 12/11/23 Additional Instructions: FOLLOW-UP WITH PRIMARY CARE PROVIDER IN 1 TO 2 DAYS. TAKE MEDICATIONS DIRECTED HERE IN THE EMERGENCY ROOM. OKAY TO CONTINUE HOME MEDICATIONS UNLESS OTHERWISE DISCUSSED DURING YOUR VISIT IN THE EMERGENCY ROOM TODAY. RETURN TO YOUR NEAREST EMERGENCY ROOM IF SYMPTOMS WORSEN OR IF THERE IS NO IMPROVEMENT. CALL 911 IF YOU NEED IMMEDIATE ASSISTANCE. TAKE TYLENOL OR MOTRIN [id number] NEEDED AND IF NO CONTRAINDICATIONS ARE PRESENT. INCREASE ORAL HYDRATION. A WOUND CULTURE OR URINE CULTURE WAS ORDERED HERE IN THE EMERGENCY ROOM DEPARTMENT PLEASE FOLLOW-UP WITH PRIMARY CARE PROVIDER AND ADVISE THEM TO GET REPEAT PORTS FROM OUR FACILITY. IF YOU HAD ANY BALJINDER WRAP/SPLINTS THAT WERE APPLIED HERE, PLEASE DO NOT REMOVE THEM UNTIL YOU SEE YOUR PRIMARY CARE OR SPECIALTY. TAKE AUGMENTIN DIRECTED TWICE A DAY UNTIL GONE. USE BUDESONIDE INHALER TWICE A DAY FOR THE NEXT SEVEN DAYS. TAKE TESSALON PERLES DIRECTED FOR COUGH. FOLLOW UP WITH YOUR PRIMARY CARE DOCTOR IN 2-3 DAYS. Referrals: ANEL AGGARWAL DO (PCP) Time of Disposition: 21:24 I have reviewed the case, and I agree with, Diagnosis and Plan JERRI ARGUELLES NP Dec 11, 2023 19:50
[2023-12-11] MEDS: BUDESONIDE 0.5 MG/2 ML INH IH STA (20:04)
[2023-12-11 20:06] VITALS: PULSE 65; RESP 20
[2023-12-11] MEDS: AMOX/CLAV 875/125MG TAB PO ONE (20:13)
[2023-12-11] MEDS: dexaMETHasone SOD PHOSPHATE 4 MG/ML 1ML VIAL IM ONE (20:14)
[2023-12-11] MEDS: acetaMINOPHEN 500 MG TABLET PO ONE (20:14)
[2023-12-11 20:21] VITALS: BP 150/72; PULSE 68; RESP 18; TEMP 98.1; O2SAT 98
[2023-12-11 20:45] LABS: RAPID GROUP A STREP negative (NEGATIVE)
[2023-12-11 20:53] LABS: COVID19 (SARS ANTIGEN RAPID) PRESUMPTIVE NEGATIVE (NEGATIVE); INFLUENZA TYPE A Negative For Type A (NEGATIVE); INFLUENZA TYPE B Negative For Type B (NEGATIVE)
[2023-12-11] MEDS ORDERED: AUD IH (21:26)
[2023-12-11] MEDS ORDERED: BUDE0.5A3 IH (21:26)
--- NOTE | 2023-12-11 21:44 | HMCIMG ---
CHEST 1VW CLINICAL HISTORY: PERSISTENT COUGH TWO WEEKS COMPARISON: 07/28/2019 TECHNIQUE: Single view of the chest was obtained. FINDINGS: Lungs are clear. The cardiac size and mediastinum are unremarkable. The bony structures are within normal limits. IMPRESSION: No acute cardiopulmonary process identified.
== END 2023-12-11 21:40 | disposition home or self-care (01) ==
LOC: EDH 19:33
DX: J03.90 Acute tonsillitis, unspecified (principal); J06.9 Acute upper respiratory infection, unspecified; B97.89 Other viral agents as the cause of diseases classified elsewhere; E11.9 Type 2 diabetes mellitus without complications; E66.9 Obesity, unspecified; Z20.822 Contact with and (suspected) exposure to COVID-19; Z79.51 Long term (current) use of inhaled steroids; Z79.899 Other long term (current) drug therapy; Z98.890 Other specified postprocedural states
CPT/HCPCS: 99284; 71045; 87426; 87880; 87804 ×2; 96372; 94640; J1100

== ENCOUNTER 2023-12-19 02:07 | Emergency (ER) | payer MEDICAID ==
[~2023-12-19] VITALS: Ht 175.3 cm; Wt 117.9 kg
[~2023-12-19 02:07] MED LIST changes: +AUD IH; +BUDE0.5A3 IH
--- NOTE | 2023-12-19 02:25 | ERN ---
ED Note History of Present Illness Stated Complaint: COUGH Chief Complaint: Cough Time Seen by MD: 02:10 Dictation: This is a 43-year-old female who presented to the emergency room with persistent cough. She has had an upper respiratory tract infection and sore throat in the earlier part of December and she was given azithromycin by her PCP with persistent cough and symptoms she received a 2nd antibiotic from him again. Due to ongoing symptoms she came into the ER on 2023 and upon evaluation the chest x-ray showed mildly prominent bronchial markings and she was given aerosol treatment and she improved was discharged on Augmentin albuterol and Tessalon Perles. Allergies: Coded Allergies: No Known Allergies (Unverified Allergy, Unknown, 07/01/18) No Known Drug Allergies (Unverified Allergy, Unknown, 02/22/19) Home Meds Active Scripts Benzonatate (Tessalon Perles) 100 Mg Cap, 100 MG PO TID for cough, #30 CAP 0 Refills Prov:JERRI ARGUELLES NP 12/11/23 Albuterol Sulfate (Albuterol Sulfate) 2.5 Mg/0.5 Ml Vial.neb, 2.5 MG IH Q6H for wheezing/sob, #20 INH 0 Refills Prov:JERRI ARGUELLES NP 12/11/23 Budesonide (Budesonide) 0.5 Mg/2 Ml Ampul.neb, 0.5 MG IH BID for 7 Days, #14 UNIT Prov:JERRI ARGUELLES NP 12/11/23 Amoxicillin/Potassium Clav (Amox Tr-K Clv 875-125 mg Tab) 875 Mg-125 Mg Tablet, 1 EACH PO BID for 10 Days, #20 TAB 0 Refills Prov:JERRI ARGUELLES NP 12/11/23 Ondansetron (Ondansetron Odt) 4 Mg Tab.rapdis, 4 MG PO BID for 3 Days, #6 TAB Prov:CLAUDETTE PEREZ MD 11/12/23 Benzonatate (Tessalon Perles) 100 Mg Cap, 100 MG PO TID for cough, #30 CAP 0 Refills Prov:JERRI ARGUELLES NP 03/21/23 Amoxicillin/Potassium Clav (Amox Tr-K Clv 875-125 mg Tab) 875 Mg-125 Mg Tablet, 1 EACH PO BID for 10 Days, #20 TAB 0 Refills Prov:JERRI ARGUELLES NP 03/21/23 Loratadine/Pseudoephedrine (Claritin-D 24 Hour Tablet) 10 Mg-240 Mg Tab.er.24h, 1 EACH PO DAILY, #10 TAB Prov:JERRI ARGUELLES NP 01/31/23 Cephalexin Monohydrate (Keflex) 500 Mg Cap, 500 MG PO QID for 7 Days, #28 CAP Prov:ROGE MICHEL Sr., MD 09/18/22 Ibuprofen (Ibuprofen) 600 Mg Tablet, 600 MG PO Q6H PRN for PAIN, #30 TAB 0 Refills Prov:ANALISA LANTIGUA MD 02/26/22 Fluticasone Propionate (Fluticasone Propionate) 16 Gm [place].susp, 16 GM NS BID for 15 Days, #1 INHALER 0 Refills Prov:ANALISA LANTIGUA MD 02/26/22 Cetirizine HCl (Cetirizine HCl) 10 Mg Tablet, 10 MG PO DAILY, #30 TAB 0 Refills Prov:ANALISA LANTIGUA MD 02/26/22 Naproxen (Naproxen) 375 Mg Tablet, 375 MG PO BID for 10 Days, #20 TAB Prov:CLAUDETTE PEREZ MD 01/26/22 Azelastine/Fluticasone (Azelastin-Flutic 137-50Mcg Spr) 23 Gm [place].pump, 2 SPRAY NS BID for 7 Days, #1 INHALER 0 Refills Prov:ANALISA LANTIGUA MD 07/31/21 Cephalexin Monohydrate (Keflex) 500 Mg Cap, 500 MG PO TID, #21 CAP Prov:BECKY SHEN 10/22/20 Ibuprofen (Ibu) 400 Mg Tablet, 800 MG PO TIDAC, #60 TAB Prov:BECKY SHEN 10/22/20 Mupirocin (Bactroban 2% Oint) 1 Appl/Gm Oint, 1 APPL TP TID for insect bite for 5 Days, #15 APPL Prov:BUNNY JACKSON NP 08/14/20 Past Medical History Past Medical History: Diabetes-Type II Additional Past Medical Hx: Obese Surgical History: Social History: Lives with family History: Not Applicable RN Note Reviewed/Agreed w/PFSH: Yes Review of System Dictation Constitutional: Negative for fever,chills, and weight loss Eyes: Negative for injury, pain,redness, and discharge ENT: Negative for injury,pain or swelling Cardiovascular: Negative for chest pain, palpitations, and edema Respiratory: Negative for shortness of breath, cough, and wheezing, Abdomen/GI: Negative for abdominal pain, nausea, vomiting, diarrhea, and constipation Back: Negative for injury and pain : Negative for injury, bleeding and discharge MS/Extremity: Negative for injury and deformity Skin: Negative for rash, and discoloration Neuro: Negative for headache, weakness, numbness, tingling, and seizure Psych: Negative for suicide ideation, homicidal ideation, and hallucinations Initial Vital Sign VS Vital Signs Date Time Temp Pulse Resp B/P (MAP) Pulse Ox O2 Delivery O2 Flow Rate FiO2 12/19/23 02:08 97.0 68 16 131/87 98 Room Air 12/19/23 03:04 21 Physical Exam Dictation General: awake, alert, NAD Head/Face: Normocephalic, atraumatic Eyes: PERRL, EOMI, vision at baseline ENT: oral cavity clear, TMs clear, no signs of infection Neck: Trachea midline, supple, no nuchal rigidity Cardiovascular: RRR, normal S1/S2, No MRGs, no JVD Respiratory: CTAB, no respiratory distress, No rales or wheezes Abdomen: Soft, non-tender, non-distended, normal bowel sounds, no guarding or rebound. Skin: Warm, dry, normal turgor, no rash MS/Extremity: Pulses equal, no cyanosis, neurovascular intact, FROM Neuro: COAx4, GCS 15, strength 5/5, CN 2-12 intact, normal cerebellar exam, normal gait, Psych: Normal behavior, mood, and affect normal Extremities-trace edema without any palpable cords, Homans sign is negative Results (Laboratory/Radiology) Laboratory/Radiology Laboratory Tests Test 12/19/23 02:30 White Blood Count 12.6 K/uL (4.8-10.8) H Red Blood Count 4.56 MIL/uL (4.00-5.50) Hemoglobin 13.4 g/dL (12.0-16.0) Hematocrit 40.7 % (36-48) Mean Corpuscular Volume 89.3 fL (79-99) Mean Corpuscular Hemoglobin 29.4 pg (27.0-33.0) Mean Corpuscular Hemoglobin Concent 32.9 g/dL (32.0-36.0) Red Cell Distribution Width 12.9 % (11.0-15.5) Platelet Count 212 K/uL (130-400) Mean Platelet Volume 11.6 fL (7.5-10.5) H Immature Granulocyte % (Auto) 0.4 % (0-1) Neutrophils (%) (Auto) 61.0 % (40.0-77.0) Lymphocytes (%) (Auto) 30.9 % (21.0-51.0) Monocytes (%) (Auto) 5.7 % (3.0-13.0) Eosinophils (%) (Auto) 1.6 % (0.0-8.0) Basophils (%) (Auto) 0.4 % (0.0-5.0) Neutrophils # (Auto) 7.7 K/uL (1.8-7.7) Lymphocytes # (Auto) 3.9 K/uL (1.0-4.8) Monocytes # (Auto) 0.7 K/uL (0.1-1.0) Eosinophils # (Auto) 0.20 K/uL (0.00-0.70) Basophils # (Auto) 0.05 K/uL (0.00-0.20) Absolute Immature Granulocyte (auto 0.05 K/uL (0-1) Nucleated Red Blood Cells 0.0 % (0.0-0.19) Sodium Level 135 mmol/L (136-145) L Potassium Level 3.3 mmol/L (3.5-5.1) L Chloride Level 98 mmol/L (101-111) L Carbon Dioxide Level 30 mmol/L (21-32) Blood Urea Nitrogen 10 mg/dL (7-18) Creatinine 0.7 mg/dL (0.5-1.0) Glomerular Filtration Rate Calc 111 mL/min (>90) Random Glucose 176 mg/dL (70-105) H Total Calcium 9.0 mg/dL (8.5-10.1) Labs Reviewed?: Yes ED Course ED Course Orders Procedure Category Date Status Time Methylprednisolone PHA 12/19/23 Complete Succ 125mg (Solu-Medr 02:30 Ipratropium/Albuterol PHA 12/19/23 Complete Neb (Duoneb) 02:30 Hydrocod/Chlorphen PHA 12/19/23 Complete 5ml (Tussionex Susp 5 02:30 Cbc With Differential LAB 12/19/23 Complete 02:23 Basic Metabolic Panel LAB 12/19/23 Complete 02:23 Current Medications Medications (Trade) Dose Ordered Sig/Sasha Route PRN Reason Start Time Stop Time Status Last Admin Dose Admin Albuterol (DUOneb) 1 UDVIAL ONCE ONCE IH 12/19/23 02:30 12/19/23 02:31 DC 12/19/23 03:02 Chlorphenir/ Hydrocodone Polistirex (TUSSionex SUSP 5ML) 5 ml ONCE ONCE PO 12/19/23 02:30 12/19/23 02:35 DC Methylprednisolone Sodium Succinate (Solu-medROL 125MG) 60 mg ONCE ONCE IVP 12/19/23 02:30 12/19/23 02:31 DC Vital Signs Date Time Temp Pulse Resp B/P (MAP) Pulse Ox O2 Delivery O2 Flow Rate FiO2 12/19/23 03:04 70 19 N/A Room Air 21 12/19/23 03:04 70 19 12/19/23 02:08 97.0 68 16 131/87 98 Room Air We will perform diagnostic labs, advanced imaging and administer medications according to the patient's complaint. Once the results are available, will review and personally interpreted the labs to rule out any acute life- threatening emergency the trach require immediate intervention and treatment. I will then re-evaluate the patient after treatment and diagnostic exams have r eturn to determine whether the patient requires any further testing, can safely be discharged home or need further admission to hospital for additional treatment and evaluation. Medical Decision Making MDM MDM: Differential diagnosis: Postinfectious cough, reactive airway disease, bronchiolitis Rationale: Tests considered and ordered secondary to shared decision making include: Previous outside records reviewed: Old ER visits. Risk of complication and/or morbidity or mortality of patient management: None Medications-Per medication reconciliation Need for hospitalization: Patient does not meet criteria for hospitalization. Need for emergency major/minor surgery: No There are no social concerns with this patient. Prescription drug management Prescriptions will include symptomatic care Patient's prior external medical records from other ER visits were reviewed by me as indicated. Prior testing and results from previous visits were reviewed. Prior tests were taken into account with medical decision making and resource utilization, independent historian/historians were used to obtain complete medical history. I independently interpreted the test that were performed, results were reviewed by me and considered findings on radiology if ordered. Medical management and examination interpretation discussions were had by me with other qualified healthcare professionals as indicated for the patient's care. DX & DISP Disposition: Discharge Departure Impression: Primary Impression: Post-viral cough syndrome Additional Impressions: Reactive airway disease, Morbid obesity, Silent aspiration, Poor dental hygiene Condition: Stable Scripts Famotidine (Pepcid) 40 Mg Tablet 1 TAB PO DAILY for 30 Days, #30 TAB 0 Refills Prov: JOSE LUIS COULTER MD 12/19/23 Albuterol Sulfate (Ventolin Hfa/Proventil Hfa/Proair Hfa) 90 Mcg Puff 2 PUFF IH Q4H for WHEEZING, #1 INHALER 0 Refills Prov: JOSE LUIS COULTER MD 12/19/23 Prednisone (Prednisone) 20 Mg Tablet 1 TAB PO AD for 6 Days, #14 TAB 0 Refills TAKE 1 TAB BY MOUTH THREE TIMES PER DAY X3 DAYS, THEN TAKE 1 TAB BY MOUTH TWICE A DAY X2 DAYS, THEN TAKE 1 TAB BY MOUTH ONCE A DAY X1 DAY. Prov: JOSE LUIS COULTER MD 12/19/23 Additional Instructions: Patient and the caregiver have been informed of all the diagnostic tests and the imaging conducted during the today's visit to the emergency room and has verbalized understanding of the results I have personally reviewed and interpreted all diagnostic exams performed here in the ER today as well as the vital signs documented by the nursing staff. The patient is now being discharged to home and should follow up with the primary care physician or the specialist as directed by the ER staff. Follow-up with primary care provider in 1 to 2 days. Take medications as directed here in the emergency room. Okay to continue home medications unless otherwise discussed during your visit in the emergency room today. Return to your nearest emergency room if symptoms worsen or if there is no improvement. Call 911 if you need immediate assistance. Take Tylenol or Motrin [id number] as needed and if no contraindications are present. Increase oral hydration. A wound culture or urine culture was ordered here in the emergency room department please follow-up with primary care provider and advise them to get repeat ports from our facility. If you had any Herrera wrap/splints that were applied here, please do not remove them until you see your primary care or specialty. Referrals: SELF,REFERRAL (PCP) JOSE LUIS COULTER MD Dec 19, 2023 02:25
[2023-12-19] MEDS ORDERED: [UNRECOGNIZED DRUG - OTHER] PO ONE (02:30)
[2023-12-19] MEDS ORDERED: HYDROCOD PO ONE (02:30)
[2023-12-19 02:38] LABS: BASOPHILS # (AUTO) 0.05 K/uL (0.00-0.20); BASOPHILS % (AUTO) 0.4 % (0.0-5.0); EOSINOPHILS % (AUTO) 1.6 % (0.0-8.0); HEMATOCRIT 40.7 % (36-48); IMMATURE GRANULOCYTE ABSOLUTE 0.05 K/uL (0-1); LYMPHOCYTES # (AUTO) 3.9 K/uL (1.0-4.8); LYMPHOCYTES % (AUTO) 30.9 % (21.0-51.0); MEAN CORPUSCULAR HEMOGLOBIN 29.4 pg (27.0-33.0); MEAN CORPUSCULAR HGB CONC 32.9 g/dL (32.0-36.0); MEAN CORPUSCULAR VOLUME 89.3 fL (79-99); MONOCYTES # (AUTO) 0.7 K/uL (0.1-1.0); MONOCYTES % (AUTO) 5.7 % (3.0-13.0); NEUTROPHILS # (AUTO) 7.7 K/uL (1.8-7.7); PLATELET COUNT (AUTO) 212 K/uL (130-400); RED BLOOD CELL COUNT(AUTO) 4.56 MIL/uL (4.00-5.50); RED CELL DISTRIBUTION WIDTH 12.9 % (11.0-15.5); WHITE BLOOD COUNT (AUTO) 12.6 K/uL (4.8-10.8)
[2023-12-19 02:46] LABS: CREATININE 0.7 mg/dL (0.5-1.0); POTASSIUM 3.3 mmol/L (3.5-5.1)
[2023-12-19] MEDS: IpraTROPium/alBUTERol SULFATE 3 ML SOLUTION IH ONE (03:02)
[2023-12-19 03:04] VITALS: PULSE 70; RESP 19; O2SAT 99
[2023-12-19] MEDS ORDERED: PRED20TA3 PO (03:20)
[2023-12-19] MEDS ORDERED: ALBUHFA IH (03:20)
[2023-12-19] MEDS ORDERED: FAMO40TA75 PO (03:20)
[2023-12-19] MEDS: Solu-medROL 125MG VIAL IVP ONE (03:46)
[2023-12-19 04:03] VITALS: BP 135/88; PULSE 71; RESP 22; TEMP 97.2; O2SAT 98
== END 2023-12-19 04:13 | disposition home or self-care (01) ==
LOC: EDH 02:07
DX: J45.909 Unspecified asthma, uncomplicated (principal); G93.31 Postviral fatigue syndrome; E11.9 Type 2 diabetes mellitus without complications; E66.01 Morbid (severe) obesity due to excess calories; Z79.899 Other long term (current) drug therapy; Z98.890 Other specified postprocedural states
CPT/HCPCS: 99283; 96374; 80048; 85025; 36415; 94640; J2919

== ENCOUNTER 2023-12-29 02:59 | Emergency (ER) | payer MEDICAID ==
[~2023-12-29] VITALS: Ht 175.3 cm; Wt 124.7 kg
[~2023-12-29 02:59] MED LIST changes: +ALBUHFA IH; +FAMO40TA75 PO; +PRED20TA3 PO
[2023-12-29] MEDS: HydroCORTISONE 1% CREAM 28G TP SCH (04:52)
[2023-12-29] MEDS: DiphenhydrAMINE HCL 50 MG/ML VIAL IM ONE (04:53)
[2023-12-29 04:54] VITALS: BP 142/66; PULSE 88; RESP 18; TEMP 98.3; O2SAT 99
--- NOTE | 2023-12-29 04:54 | ERN ---
General Chief Complaint: Skin Rash/Abscess Stated Complaint: C/O RASH WITH ITCHING Time Seen by MD: 03:02 History of Present Illness Initial Comments Mrs [place] is a 43-year-old female comes in today with a chief complaint of rash. Patient reports that she is allergic to strawberries. She reports she had strawberry cake today. States that 2 hours after eating the case she started feeling a rash all over body. Patient denies any other symptoms Allergies: Coded Allergies: No Known Allergies (Unverified Allergy, Unknown, 07/01/18) No Known Drug Allergies (Unverified Allergy, Unknown, 02/22/19) Home Meds Active Scripts Famotidine (Pepcid) 40 Mg Tablet, 1 TAB PO DAILY for 30 Days, #30 TAB 0 Refills Prov:JOSE LUIS COULTER MD 12/19/23 Albuterol Sulfate (Ventolin Hfa/Proventil Hfa/Proair Hfa) 90 Mcg Puff, 2 PUFF IH Q4H for WHEEZING, #1 INHALER 0 Refills Prov:JOSE LUIS COULTER MD 12/19/23 Prednisone (Prednisone) 20 Mg Tablet, 1 TAB PO AD for 6 Days, #14 TAB 0 Refills TAKE 1 TAB BY MOUTH THREE TIMES PER DAY X3 DAYS, THEN TAKE 1 TAB BY MOUTH TWICE A DAY X2 DAYS, THEN TAKE 1 TAB BY MOUTH ONCE A DAY X1 DAY. Prov:JOSE LUIS COULTER MD 12/19/23 Benzonatate (Tessalon Perles) 100 Mg Cap, 100 MG PO TID for cough, #30 CAP 0 Refills Prov:JERRI ARGUELLES NP 12/11/23 Albuterol Sulfate (Albuterol Sulfate) 2.5 Mg/0.5 Ml Vial.neb, 2.5 MG IH Q6H for wheezing/sob, #20 INH 0 Refills Prov:JERRI ARGUELLES NP 12/11/23 Budesonide (Budesonide) 0.5 Mg/2 Ml Ampul.neb, 0.5 MG IH BID for 7 Days, #14 UNIT Prov:JERRI ARGUELLES NP 12/11/23 Amoxicillin/Potassium Clav (Amox Tr-K Clv 875-125 mg Tab) 875 Mg-125 Mg Tablet, 1 EACH PO BID for 10 Days, #20 TAB 0 Refills Prov:JERRI ARGUELLES NP 12/11/23 Ondansetron (Ondansetron Odt) 4 Mg Tab.rapdis, 4 MG PO BID for 3 Days, #6 TAB Prov:CLAUDETTE PEREZ MD 11/12/23 Benzonatate (Tessalon Perles) 100 Mg Cap, 100 MG PO TID for cough, #30 CAP 0 Refills Prov:JERRI ARGUELLES [employer] 03/21/23 Amoxicillin/Potassium Clav (Amox Tr-K Clv 875-125 mg Tab) 875 Mg-125 Mg Tablet, 1 EACH PO BID for 10 Days, #20 TAB 0 Refills Prov:JERRI ARGUELLES [employer] 03/21/23 Loratadine/Pseudoephedrine (Claritin-D 24 Hour Tablet) 10 Mg-240 Mg Tab.er.24h, 1 EACH PO DAILY, #10 TAB Prov:JERRI ARGUELLES [employer] 01/31/23 Cephalexin Monohydrate (Keflex) 500 Mg Cap, 500 MG PO QID for 7 Days, #28 CAP Prov:ROGE MICHEL Sr., MD 09/18/22 Ibuprofen (Ibuprofen) 600 Mg Tablet, 600 MG PO Q6H PRN for PAIN, #30 TAB 0 Refills Prov:ANALISA LANTIGUA MD 02/26/22 Fluticasone Propionate (Fluticasone Propionate) 16 Gm [place].susp, 16 GM NS BID for 15 Days, #1 INHALER 0 Refills Prov:ANALISA LANTIGUA MD 02/26/22 Cetirizine HCl (Cetirizine HCl) 10 Mg Tablet, 10 MG PO DAILY, #30 TAB 0 Refills Prov:ANALISA LANTIGUA MD 02/26/22 Naproxen (Naproxen) 375 Mg Tablet, 375 MG PO BID for 10 Days, #20 TAB Prov:CLAUDETTE PEREZ MD 01/26/22 Azelastine/Fluticasone (Azelastin-Flutic 137-50Mcg Spr) 23 Gm [place]z.pump, 2 SPRAY NS BID for 7 Days, #1 INHALER 0 Refills Prov:ANALISA LANTIGUA MD 07/31/21 Cephalexin Monohydrate (Keflex) 500 Mg Cap, 500 MG PO TID, #21 CAP Prov:BECKY SHEN 10/22/20 Ibuprofen (Ibu) 400 Mg Tablet, 800 MG PO TIDAC, #60 TAB Prov:BECKY SHEN 10/22/20 Mupirocin (Bactroban 2% Oint) 1 Appl/Gm Oint, 1 APPL TP TID for insect bite for 5 Days, #15 APPL Prov:FRANCO JACKSONDIRA [employer] 08/14/20 Past Medical History Past Medical History: Diabetes-Type II Medical History Other: Obese Past Surgical History: Social History Social History: Lives with family Female( History) History: Not Applicable ROS Dictation Constitutional: Negative for fever,chills, and weight loss Eyes: Negative for injury, pain,redness, and discharge ENT: Negative for injury,pain or swelling Cardiovascular: Negative for chest pain, palpitations, and edema Respiratory: Negative for shortness of breath, cough, and wheezing, Abdomen/GI: Negative for abdominal pain, nausea, vomiting, diarrhea, and constipation Back: Negative for injury and pain : Negative for injury, bleeding and discharge MS/Extremity: Negative for injury and deformity Skin: Positive rash Neuro: Negative for headache, weakness, numbness, tingling, and seizure Psych: Negative for suicide ideation, homicidal ideation, and hallucinations Physical Exam Physical Exam Dictation General: awake, alert, NAD Head/Face: Normocephalic, atraumatic Eyes: PERRL, EOMI, vision at baseline ENT: oral cavity clear, TMs clear, Neck: Trachea midline, supple Cardiovascular: RRR, normal S1/S2, No MRGs, no JVD Respiratory: CTAB, no respiratory distress Abdomen: Soft, non-tender, non-distended, Skin: Hives and welts throughout the body MS/Extremity: Pulses equal, Neuro: COAx4, GCS 15, MDM Patient has been given steroids and Benadryl. Patient has been doing well we will be discharged with follow up MDM: Differential diagnosis: Food allergy Rationale: Tests considered and ordered secondary to shared decision making include: Previous outside records reviewed: Old ER visits. Risk of complication and/or morbidity or mortality of patient management: None Medications-Per medication reconciliation Need for hospitalization: Patient does not meet criteria for hospitalization. Need for emergency major/minor surgery: No There are no social concerns with this patient. Prescription drug management Prescriptions will include symptomatic care Patient's prior external medical records from other ER visits were reviewed by me as indicated. Prior testing and results from previous visits were reviewed. Prior tests were taken into account with medical decision making and resource utilization, independent historian/historians were used to obtain complete medical history. I independently interpreted the test that were performed, results were reviewed by me and considered findings on radiology if ordered. Medical management and examination interpretation discussions were had by me wit h other qualified healthcare professionals as indicated for the patient's care. ED Course Orders Procedure Category Date Status Time Hydrocortisone 1% PHA 12/29/23 In Process Cream (Cortrisone 1% C 05:00 Diphenhydramine Hcl PHA 12/29/23 In Process (Benadryl Inj) 05:00 Current Medications Medications (Trade) Dose Ordered Sig/Sasha Route PRN Reason Start Time Stop Time Status Last Admin Dose Admin Diphenhydramine HCl (BENAdryl INJ) 25 mg ONCE ONCE IM 12/29/23 05:00 12/29/23 05:01 Hydrocortisone (corTRIsone 1% CREAM) 1 appl ONCE TP 12/29/23 05:00 01/28/24 04:59 Vital Signs Date Time Temp Pulse Resp B/P (MAP) Pulse Ox O2 Delivery O2 Flow Rate FiO2 12/29/23 03:01 98.4 68 20 120/59 97 Room Air DX & DISP Disposition: Discharge Departure Impression: Primary Impression: Food allergy Condition: Stable Additional Instructions: Please continue to take hydrocortisone 1% twice a day. Please buy this [id number] at any drug store. Please avoid eating strawberries Please follow up with your primary care physician in the next 1-7 days Referrals: ANEL AGGARWAL DO (PCP) JEWELL WADDELL MD Dec 29, 2023 04:54
== END 2023-12-29 05:04 | disposition home or self-care (01) ==
LOC: EDH 02:59
DX: T78.1XXA Other adverse food reactions, not elsewhere classified, initial encounter (principal); E11.9 Type 2 diabetes mellitus without complications; E66.9 Obesity, unspecified; Z79.899 Other long term (current) drug therapy; Z98.890 Other specified postprocedural states; X58.XXXA Exposure to other specified factors, initial encounter
CPT/HCPCS: 99283; 96372; J1200

== ENCOUNTER 2024-03-10 17:50 | Emergency (ER) | payer MEDICAID ==
[~2024-03-10] VITALS: Ht 175.3 cm; Wt 123.8 kg
[2024-03-10 18:03] VITALS: BP 116/52; PULSE 74; RESP 18; TEMP 98.5; O2SAT 98
[2024-03-10] MEDS ORDERED: LORA10TA7 PO (18:13)
--- NOTE | 2024-03-10 18:13 | ERN ---
General Chief Complaint: Allergic Reaction Stated Complaint: BEE STING Time Seen by MD: 18:06 Source: patient History of Present Illness Initial Comments Patient is a 43-year-old female coming in to be evaluated for left hand bee sting. Patient states that this happened about 30-45 minutes ago. No swelling mild discomfort no inflammation. Allergies: Coded Allergies: No Known Allergies (Unverified Allergy, Unknown, 07/01/18) No Known Drug Allergies (Unverified Allergy, Unknown, 02/22/19) Home Meds Active Scripts Famotidine (Pepcid) 40 Mg Tablet, 1 TAB PO DAILY for 30 Days, #30 TAB 0 Refills Prov:JOSE LUIS COULTER MD 12/19/23 Albuterol Sulfate (Ventolin Hfa/Proventil Hfa/Proair Hfa) 90 Mcg Puff, 2 PUFF IH Q4H for WHEEZING, #1 INHALER 0 Refills Prov:JOSE LUIS COULTER MD 12/19/23 Prednisone (Prednisone) 20 Mg Tablet, 1 TAB PO AD for 6 Days, #14 TAB 0 Refills TAKE 1 TAB BY MOUTH THREE TIMES PER DAY X3 DAYS, THEN TAKE 1 TAB BY MOUTH TWICE A DAY X2 DAYS, THEN TAKE 1 TAB BY MOUTH ONCE A DAY X1 DAY. Prov:JOSE LUIS COULTER MD 12/19/23 Benzonatate (Tessalon Perles) 100 Mg Cap, 100 MG PO TID for cough, #30 CAP 0 Refills Prov:JERRI ARGUELLES NP 12/11/23 Albuterol Sulfate (Albuterol Sulfate) 2.5 Mg/0.5 Ml Vial.neb, 2.5 MG IH Q6H for wheezing/sob, #20 INH 0 Refills Prov:JERRI ARGUELLES NP 12/11/23 Budesonide (Budesonide) 0.5 Mg/2 Ml Ampul.neb, 0.5 MG IH BID for 7 Days, #14 UNIT Prov:JERRI ARGUELLES NP 12/11/23 Amoxicillin/Potassium Clav (Amox Tr-K Clv 875-125 mg Tab) 875 Mg-125 Mg Tablet, 1 EACH PO BID for 10 Days, #20 TAB 0 Refills Prov:JERRI ARGUELLES NP 12/11/23 Ondansetron (Ondansetron Odt) 4 Mg Tab.rapdis, 4 MG PO BID for 3 Days, #6 TAB Prov:CLAUDETTE PEREZ MD 11/12/23 Benzonatate (Tessalon Perles) 100 Mg Cap, 100 MG PO TID for cough, #30 CAP 0 Refills Prov:JERRI ARGUELLES [employer] 03/21/23 Amoxicillin/Potassium Clav (Amox Tr-K Clv 875-125 mg Tab) 875 Mg-125 Mg Tablet, 1 EACH PO BID for 10 Days, #20 TAB 0 Refills Prov:JERRI ARGUELLES [employer] 03/21/23 Loratadine/Pseudoephedrine (Claritin-D 24 Hour Tablet) 10 Mg-240 Mg Tab.er.24h, 1 EACH PO DAILY, #10 TAB Prov:JERRI ARGUELLES NP 01/31/23 Cephalexin Monohydrate (Keflex) 500 Mg Cap, 500 MG PO QID for 7 Days, #28 CAP Prov:ROGE MICHEL Sr., MD 09/18/22 Ibuprofen (Ibuprofen) 600 Mg Tablet, 600 MG PO Q6H PRN for PAIN, #30 TAB 0 Refills Prov:ANALISA LANTIGUA MD 02/26/22 Fluticasone Propionate (Fluticasone Propionate) 16 Gm [place].susp, 16 GM NS BID for 15 Days, #1 INHALER 0 Refills Prov:ANALISA LANTIGUA MD 02/26/22 Cetirizine HCl (Cetirizine HCl) 10 Mg Tablet, 10 MG PO DAILY, #30 TAB 0 Refills Prov:ANALISA LANTIGUA MD 02/26/22 Naproxen (Naproxen) 375 Mg Tablet, 375 MG PO BID for 10 Days, #20 TAB Prov:CLAUDETTE PEREZ MD 01/26/22 Azelastine/Fluticasone (Azelastin-Flutic 137-50Mcg Spr) 23 Gm [place].pump, 2 SPRAY NS BID for 7 Days, #1 INHALER 0 Refills Prov:ANALISA LANTIGUA MD 07/31/21 Cephalexin Monohydrate (Keflex) 500 Mg Cap, 500 MG PO TID, #21 CAP Prov:BECKY SHEN 10/22/20 Ibuprofen (Ibu) 400 Mg Tablet, 800 MG PO TIDAC, #60 TAB Prov:BECKY SHEN 10/22/20 Mupirocin (Bactroban 2% Oint) 1 Appl/Gm Oint, 1 APPL TP TID for insect bite for 5 Days, #15 APPL Prov:BUNNY JACKSON [employer] 08/14/20 Past Medical History Past Medical History: Diabetes-Type II Medical History Other: Obese Past Surgical History: Social History Social History: Lives with family Female( History) History: Not Applicable ROS Dictation CONSTITUTIONAL: No chills, no fever, no weakness, no diaphoresis, no malaise. HEAD/FACE: No signs of trauma. EENT: No eye pain, no blurred vision, no tearing, no double vision, no ear pain, no ear discharge, no nose pain, no nasal congestion, no throat pain, no throat swelling, no mouth pain. RESPIRATORY: No cough, no orthopnea, no SOB, no stridor, no wheezing. CARDIOVASCULAR: No chest pain, no edema, no palpitations, no syncope. GASTROINTESTINAL/ABDOMINAL: No abdominal pain, no constipation, no diarrhea, no nausea, no vomiting. GENITOURINARY: No abnormal discharge, no dysuria, no frequent urination, no hematuria. No complaints of pain in the genitals. MUSCULOSKELETAL: No back pain, no gout, no joint pain, no joint swelling, no muscle pain, no muscle stiffness, no neck pain. INTEGUMENTARY: No change in color, no change in hair/nails, no dryness, no lesion, no lumps, rash. NEUROLOGICAL/PSYCH: No anxiety, not depressed, no emotional problem, no headache, no numbness, no pre-existing deficit, no history of seizures, no tr emors, no weakness. HEMATOLOGIC/LYMPHATIC: Not anemic, no history of blood clots, no apparent bleeding, no bruising, glands not swollen. All Systems Negative, Except as Noted. Physical Exam Physical Exam Dictation VITAL SIGNS: Reviewed. GENERAL APPEARANCE: Alert, oriented x3, no acute distress, obese. HEAD AND FACE: Non-traumatic. EYES: PERRL, pink conjunctivas, eyelid no trauma, anterior chamber clear. EARS: Pinnas intact and no signs of trauma or erythema. Ear canals clear and no discharge. TMs no erythema. NOSE: No discharge, no bleeding. OROPHARYNX: Mouth normal, teeth no caries, tongue pink. Pharynx clear, no erythema. Tonsils no exudates, no abscesses noted. Mucous membrane moist. NECK: Supple, non-tender, no thyromegaly, no masses, no JVD, no bruits. BREAST: Deferred. CHEST: No tenderness, no crepitus, no paradoxical movement, no retractions. LUNGS: Clear, well-ventilated, symmetric, no rales, no wheezing, no rhonchi, no stridor, good breath sounds bilaterally. HEART: Regular rate, regular rhythm, no murmur, no gallops. VASCULAR: No peripheral edema. ABDOMEN: Soft, positive bowel sounds, nondistended, no guarding, nontender, no rebound, no masses no hepatomegaly, no splenomegaly, no Sun's sign, no hernias. RECTAL: Deferred. GENITAL: Deferred. NEUROLOGICAL: Normal speech, gross motor function intact, gross sensory function intact. MUSCULOSKELETAL: Neck nontender, full range of motion, back nontender, full range of motion. EXTREMITIES: Nontender, full range of motion. SKIN: Color pink, dry, no turgor, no rash, no lacerations, no abrasions, no contusions. LYMPHATICS: Deferred. Results Laboratory and Microbiology Labs Reviewed?: Yes MDM MDM: Differential diagnosis: Bee sting, allergic reaction, rash Patient is a 43-year-old female coming in to be evaluated for bee sting. Patient states he was stung by a bee for the minutes ago. On physical exam no erythema noted on the bee sting. No swelling noted. Patient will be discharged with a diagnosis of bee sting antihistamine provided. ED Course Orders Procedure Category Date Status Time Acetaminophen 500mg PHA 03/10/24 Verified Tab (Tylenol 500mg T 18:30 Vital Signs Date Time Temp Pulse Resp B/P (MAP) Pulse Ox O2 Delivery O2 Flow Rate FiO2 03/10/24 18:03 98.4 74 18 116/52 98 Room Air* 0 21 03/10/24 17:53 98.6 70 18 130/83 99 Room Air 0 DX & DISP Disposition: Discharge Departure Impression: Primary Impression: Bee sting Condition: Stable Scripts Loratadine (Loratadine) 10 Mg Tablet 1 TAB PO DAILY for allergy symptoms for 30 Days, #30 TAB 0 Refills Prov: CLAUDETTE PEREZ MD 03/10/24 Additional Instructions: FOLLOW-UP WITH PRIMARY CARE PROVIDER IN 1 TO 2 DAYS. TAKE MEDICATIONS DIRECTED HERE IN THE EMERGENCY ROOM. OKAY TO CONTINUE HOME MEDICATIONS UNLESS OTHERWISE DISCUSSED DURING YOUR VISIT IN THE EMERGENCY ROOM TODAY. RETURN TO YOUR NEAREST EMERGENCY ROOM IF SYMPTOMS WORSEN OR IF THERE IS NO IMPROVEMENT. CALL [phone] IF YOU NEED IMMEDIATE ASSISTANCE. TAKE TYLENOL EEDN-[id number] NEEDED AND IF NO CONTRAINDICATIONS ARE PRESENT. INCREASE ORAL HYDRATION. A WOUND CULTURE OR URINE CULTURE WAS ORDERED HERE IN THE EMERGENCY ROOM DEPARTMENT PLEASE FOLLOW-UP WITH PRIMARY CARE PROVIDER AND ADVISE THEM TO GET REPEAT PORTS FROM OUR FACILITY. IF YOU HAD ANY BALJINDER WRAP/SPLINTS THAT WERE APPLIED HERE, PLEASE DO NOT REMOVE THEM UNTIL YOU SEE YOUR PRIMARY CARE OR SPECIALTY. Referrals: Referrals: ANEL AGGARWAL DO (PCP) Time of Disposition: 18:12 CLAUDETTE PEREZ MD Mar 10, 2024 18:13
[2024-03-10] MEDS: acetaMINOPHEN 500 MG TABLET PO ONE (18:17)
== END 2024-03-10 18:24 | disposition home or self-care (01) ==
LOC: EDH 17:50
DX: T63.441A Toxic effect of venom of bees, accidental (unintentional), initial encounter (principal); E11.9 Type 2 diabetes mellitus without complications; E66.9 Obesity, unspecified; Y92.89 Other specified places as the place of occurrence of the external cause
CPT/HCPCS: 99282

== ENCOUNTER 2024-09-28 17:51 | Emergency (ER) | payer MEDICAID ==
[~2024-09-28] VITALS: Ht 175.3 cm; Wt 122.5 kg
[~2024-09-28 17:51] MED LIST changes: +AZIT500T4 PO; +CODE473S6 PO; +IBUP-1492 PO; -IBUP-2070 PO; +LORA10TA7 PO; +NIRM1TAB12 PO
--- NOTE | 2024-09-28 19:39 | ERN ---
ED Note History of Present Illness Stated Complaint: SORE THROAT Chief Complaint: Sore Throat Time Seen by MD: 17:54 Time Seen by Midlevel: 17:54 Dictation: The patient is a 44-year-old female with a history of diabetes, who presents to the emergency department with complaints of sore throat, nonproductive cough, onset yesterday. Patient has been seen here in the last two week for similar symptoms. Was diagnosed with a Viral infection Allergies: Coded Allergies: No Known Allergies (Unverified Allergy, Unknown, 07/01/18) No Known Drug Allergies (Unverified Allergy, Unknown, 02/22/19) amoxicillin (Unverified Allergy, Unknown, 09/26/24) Home Meds Active Scripts Promethazine HCl/Codeine (Promethazine-Codeine Syrup) 6.25 Mg-10 Mg/5 Ml Syrup, 5 ML PO Q4HPRN PRN for cough, #120 ML 0 Refills Prov:SUSAN COLUNGA DO 09/23/24 Azithromycin (Azithromycin) 500 Mg Tablet, 1 TAB PO DAILY for 5 Days, #5 TAB 0 Refills Prov:APPLE HERNANDEZ MD 09/18/24 Nirmatrelvir/Ritonavir (Paxlovid 300-100 mg Dose Pack) 300 Mg (150 Mg X 2)-100 Mg Tab.ds.pk, 1 EACH PO BID, #15 TAB Prov:APPLE HERNANDEZ MD 09/18/24 Amoxicillin/Potassium Clav (Amox Tr-K Clv 875-125 mg Tab) 875 Mg-125 Mg Tablet, 1 EACH PO BID for 5 Days, #10 TAB 0 Refills Prov:TERESA REMY 04/20/24 Loratadine (Loratadine) 10 Mg Tablet, 1 TAB PO DAILY for allergy symptoms for 30 Days, #30 TAB 0 Refills Prov:CLAUDETTE PEREZ MD 03/10/24 Famotidine (Pepcid) 40 Mg Tablet, 1 TAB PO DAILY for 30 Days, #30 TAB 0 Refills Prov:JOSE LUIS COULTER MD 12/19/23 Albuterol Sulfate (Ventolin Hfa/Proventil Hfa/Proair Hfa) 90 Mcg Puff, 2 PUFF IH Q4H for WHEEZING, #1 INHALER 0 Refills Prov:JOSE LUIS COULTER MD 12/19/23 Prednisone (Prednisone) 20 Mg Tablet, 1 TAB PO AD for 6 Days, #14 TAB 0 Refills TAKE 1 TAB BY MOUTH THREE TIMES PER DAY X3 DAYS, THEN TAKE 1 TAB BY MOUTH TWICE A DAY X2 DAYS, THEN TAKE 1 TAB BY MOUTH ONCE A DAY X1 DAY. Prov:JOSE LUIS COULTER MD 12/19/23 Benzonatate (Tessalon Perles) 100 Mg Cap, 100 MG PO TID for cough, #30 CAP 0 Refills Prov:JERRI ARGUELLES NP 12/11/23 Albuterol Sulfate (Albuterol Sulfate) 2.5 Mg/0.5 Ml Vial.neb, 2.5 MG IH Q6H for wheezing/sob, #20 INH 0 Refills Prov:JERRI ARGUELLES NP 12/11/23 Budesonide (Budesonide) 0.5 Mg/2 Ml Ampul.neb, 0.5 MG IH BID for 7 Days, #14 UNIT Prov:JERRI ARGUELLES NP 12/11/23 Amoxicillin/Potassium Clav (Amox Tr-K Clv 875-125 mg Tab) 875 Mg-125 Mg Tablet, 1 EACH PO BID for 10 Days, #20 TAB 0 Refills Prov:JERRI ARGUELLES NP 12/11/23 Ondansetron (Ondansetron Odt) 4 Mg Tab.rapdis, 4 MG PO BID for 3 Days, #6 TAB Prov:CLAUDETTE PEREZ MD 11/12/23 Benzonatate (Tessalon Perles) 100 Mg Cap, 100 MG PO TID for cough, #30 CAP 0 Refills Prov:JERRI ARGUELLES NP 03/21/23 Amoxicillin/Potassium Clav (Amox Tr-K Clv 875-125 mg Tab) 875 Mg-125 Mg Tablet, 1 EACH PO BID for 10 Days, #20 TAB 0 Refills Prov:JERRI ARGUELLES NP 03/21/23 Loratadine/Pseudoephedrine (Claritin-D 24 Hour Tablet) 10 Mg-240 Mg Tab.er.24h, 1 EACH PO DAILY, #10 TAB Prov:JERRI ARGUELLES NP 01/31/23 Cephalexin Monohydrate (Keflex) 500 Mg Cap, 500 MG PO QID for 7 Days, #28 CAP Prov:ROGE MICHEL Sr., MD 09/18/22 Ibuprofen (Ibuprofen) 600 Mg Tablet, 600 MG PO Q6H PRN for PAIN, #30 TAB 0 Refills Prov:ANALISA LANTIGUA MD 02/26/22 Fluticasone Propionate (Fluticasone Propionate) 16 Gm [place].susp, 16 GM NS BID for 15 Days, #1 INHALER 0 Refills Prov:ANALISA LANTIGUA MD 02/26/22 Cetirizine HCl (Cetirizine HCl) 10 Mg Tablet, 10 MG PO DAILY, #30 TAB 0 Refills Prov:ANALISA LANTIGUA MD 02/26/22 Naproxen (Naproxen) 375 Mg Tablet, 375 MG PO BID for 10 Days, #20 TAB Prov:CLAUDETTE PEREZ MD 01/26/22 Azelastine/Fluticasone (Azelastin-Flutic 137-50Mcg Spr) 23 Gm [place].pump, 2 SPRAY NS BID for 7 Days, #1 INHALER 0 Refills Prov:ANALISA LANTIGUA MD 07/31/21 Cephalexin Monohydrate (Keflex) 500 Mg Cap, 500 MG PO TID, #21 CAP Prov:BECKY SHEN 10/22/20 Ibuprofen (Ibu) 400 Mg Tablet, 800 MG PO TIDAC, #60 TAB Prov:BECKY SHEN 10/22/20 Mupirocin (Bactroban 2% Oint) 1 Appl/Gm Oint, 1 APPL TP TID for insect bite for 5 Days, #15 APPL Prov:BUNNY JACKSON NP 08/14/20 Past Medical History Past Medical History: Diabetes-Type II Additional Past Medical Hx: Obese Surgical History: Social History: Lives with family History: Not Applicable RN Note Reviewed/Agreed w/PFSH: Yes Review of System Dictation Constitutional: Negative for fever,chills, and weight loss Eyes: Negative for injury, pain,redness, and discharge ENT: Negative for injury,pain or swelling positive for sore throat Cardiovascular: Negative for chest pain, palpitations, and edema Respiratory: Negative for shortness of breath, and wheezing, positive for cough Abdomen/GI: Negative for abdominal pain, nausea, vomiting, diarrhea, and constipation Back: Negative for injury and pain : Negative for injury, bleeding and discharge MS/Extremity: Negative for injury and deformity Skin: Negative for rash, and discoloration Neuro: Negative for headache, weakness, numbness, tingling, and seizure Psych: Negative for suicide ideation, homicidal ideation, and hallucinations Initial Vital Sign VS Vital Signs Date Time Temp Pulse Resp B/P (MAP) Pulse Ox O2 Delivery O2 Flow Rate FiO2 09/28/24 17:52 97.7 69 18 152/68 98 Room Air 09/28/24 18:02 0 21 Physical Exam Dictation Vital Signs reviewed General Appearance: Alert, oriented x 3, no acute distress, well developed, nourished. Head and Face: non-traumatic. Eyes: PERRL, pink conjunctivas, eyelid no trauma, anterior chamber with arcus senilis. Ears: Pinnas intact and no signs of trauma or erythema ear canals clear and no discharge TM no erythema Nose: No discharge, no bleeding. Oropharynx: Mouth normal, tongue pink. pharynx clear,no erythema, tonsils no exudates, no abscesses noted, mucous membrane moist Neck: Supple, non-tender, no thyromegaly, no masses, no JVD, no bruits Breast:Deferred Chest:No tenderness, no crepitus, no paradoxical movement, no retractions Lungs:Clear, well-ventilated, symmetric, no rales, no wheezing, no rhonchi, no stridor, good breath sounds bilaterally Heart: Regular rate, regular rhythm, no murmur, no gallops Vascular: no peripheral edema, Abdomen: Soft, positive bowel sounds, nondistended, no guarding, nontender, no rebound, no masses no hepatomegaly, no splenomegaly, no Sun's sign, no hernias. Rectal: Deferred Genital: Deferred Neurological: Normal speech, motor function intact, sensory function intact Musculoskeletal: Neck nontender, full range of motion, back nontender, full range of motion, Extremities: nontender, full range of motion Skin: Color pink, dry, no turgor, no rash, no lacerations, no abrasions, no contusions. Lymphatic: Deferred Results (Laboratory/Radiology) Labs Reviewed?: Yes ED Course ED Course Orders Procedure Category Date Status Time Acetaminophen 500mg PHA 09/28/24 Complete Tab (Tylenol 500mg T 18:30 Current Medications Medications (Trade) Dose Ordered Sig/Sasha Route PRN Reason Start Time Stop Time Status Last Admin Dose Admin Acetaminophen (TYLenol 500MG TAB) 1,000 mg ONCE ONCE PO 09/28/24 18:30 09/28/24 18:35 DC 09/28/24 19:00 Vital Signs Date Time Temp Pulse Resp B/P (MAP) Pulse Ox O2 Delivery O2 Flow Rate FiO2 09/28/24 18:02 98.2 65 16 150/65 98 Room Air* 0 21 09/28/24 17:52 97.7 69 18 152/68 98 Room Air Medical Decision Making MDM The patient is a 44-year-old female with a history of diabetes, who presents to the emergency department with complaints of sore throat, nonproductive cough, onset yesterday. Patient has been seen here in the last two week for similar symptoms. Was diagnosed with a Viral infection Patient has been seen here multiple times for a viral infection. Patient had a chest x-ray done a few days ago which showed no pneumonia. On physical exam patient is in no acute distress, nontoxic appearance, stable vital signs we will be discharged to follow up with PCP. Differential diagnosis: URI, pharyngitis, tonsillitis Need for hospitalization: Patient does not meet criteria for hospitalization. There are no social concerns with this patient. DX & DISP Disposition: Discharge Departure Impression: Primary Impression: Post-viral cough syndrome Condition: Stable Additional Instructions: FOLLOW-UP WITH PRIMARY CARE PROVIDER IN 1 TO 2 DAYS. TAKE MEDICATIONS DIRECTED HERE IN THE EMERGENCY ROOM. OKAY TO CONTINUE HOME MEDICATIONS UNLESS OTHERWISE DISCUSSED DURING YOUR VISIT IN THE EMERGENCY ROOM TODAY. RETURN TO YOUR NEAREST EMERGENCY ROOM IF SYMPTOMS WORSEN OR IF THERE IS NO IMPROVEMENT. CALL 911 IF YOU NEED IMMEDIATE ASSISTANCE. TAKE TYLENOL [id number] NEEDED AND IF NO CONTRAINDICATIONS ARE PRESENT. INCREASE ORAL HYDRATION. A WOUND CULTURE OR URINE CULTURE WAS ORDERED HERE IN THE EMERGENCY ROOM DEPARTMENT PLEASE FOLLOW-UP WITH PRIMARY CARE PROVIDER AND ADVISE THEM TO GET REPEAT PORTS FROM OUR FACILITY. IF YOU HAD ANY BALJINDER WRAP/SPLINTS THAT WERE APPLIED HERE, PLEASE DO NOT REMOVE THEM UNTIL YOU SEE YOUR PRIMARY CARE OR SPECIALTY. Referrals: ANEL AGGARWAL DO (PCP) Time of Disposition: 19:51 I have reviewed the case, and I agree with, Diagnosis and Plan AKIN BARBER Sep 28, 2024 19:39
[2024-09-28 20:09] VITALS: BP 150/65; PULSE 62; RESP 16; TEMP 98.3; O2SAT 98
== END 2024-09-28 20:14 | disposition home or self-care (01) ==
LOC: EDH 17:51
DX: G93.31 Postviral fatigue syndrome (principal); E11.9 Type 2 diabetes mellitus without complications; E66.9 Obesity, unspecified; Z88.0 Allergy status to penicillin
CPT/HCPCS: 99282